=== PATIENT | female | born 1950 | race Caucasian/White ===

== ENCOUNTER → 2016-07-16 | Outpatient (CLI) | payer BC ==
[2016-07-16] VITALS (12 sets, daily range): BP systolic 145–195; BP diastolic 78–100; PULSE 55–62
[~2016-07-16] VITALS: Ht 162.6 cm; Wt 81.8 kg
[~2016-07-16] MED LIST: AMOXICILLIN 8751 TAB PO; ASPIRIN 32325 MG/TAB PO; ASPIRIN E.C. 8181 MG PO; CANA100T PO; CANA300T PO; CARDIZEM CD 24240 MG PO; CEPHALEXIN500 M1 PO; COUMADIN 5MG5 MG/TAB PO; COZAAR 25MG25 MG/TAB PO; COZAAR 50MG50 MG/TAB PO; COZAAR100 MG PO; DIABETA 5MG5 MG/TAB PO; FENTANYL 50MCG TD; FLAGYL 250250 MG/TAB PO; HCTZ 25MG TAB25 MG PO; LEVEMIR SQ; LIPITOR20 MG PO; LOVENOX 8080 MG/0.8 SQ; NEURONTIN100 MG/CAP PO; NORCO 325 MG-51 TAB PO; PACERONE100 MG PO; PEPCID 20MG TAB20 MG PO; ROBAXIN 50500 MG/TAB PO; STOOL SOFTENER100 M2 PO; TENORMIN 2525 MG/TAB; TENORMIN 5050 MG/TAB PO; TYLENOL W/COD1 UDTAB PO
== END ==
LOC: COL.RAD 13:29
DX: D47.9 Neoplasm of uncertain behavior of lymphoid, hematopoietic and related tissue, unspecified (principal)
CPT/HCPCS: J2250

== ENCOUNTER → 2016-07-31 | Outpatient (CLI) | payer BC ==
[~2016-07-31] VITALS: Ht 162.6 cm; Wt 79.1 kg
[2016-07-31] VITALS (14 sets, daily range): BP systolic 172–206; BP diastolic 87–133; PULSE 59–65
== END ==
LOC: COL.RAD 07-27 12:30
DX: M89.9 Disorder of bone, unspecified (principal)
CPT/HCPCS: J2250; J3010

== ENCOUNTER → 2017-12-13 | Outpatient (CLI) | payer MEDICARE, OTHER ==
[~2017-12-13] MED LIST changes: +CALCIUM 600/VIT1 CAP PO; +FOLIC ACID 11 MG/TA1 PO; +METHOTREXA2.5 MG/TAB PO; +OMEGA-3 1000 MG1 CAP PO; -PACERONE100 MG PO; +PACERONE200 MG PO; +PREDNISONE 5MG5 MG PO
== END ==
LOC: COL.RAD 10:00
DX: R93.2 Abnormal findings on diagnostic imaging of liver and biliary tract (principal); K83.8 Other specified diseases of biliary tract

== ENCOUNTER → 2019-02-18 | Outpatient (CLI) | payer MEDICARE, OTHER | LOC: MC.RAD 06:51 | DX: R92.0 Mammographic microcalcification found on diagnostic imaging of breast (principal); Z98.82 Breast implant status ==